=== PATIENT | female | born 1950 | race Hispanic/Latino ===

== ENCOUNTER 2023-10-11 13:47 | Emergency (ER) | payer OTHER ==
[~2023-10-11] VITALS: Ht 162.6 cm; Wt 67.6 kg
[~2023-10-11 13:47] MED LIST: ASPIRIN81 MG PO; CALCIUM PO; CRESTOR10 MG PO; FISH OIL OMEGA1 EACH PO; LISINOPRIL2.5 MG PO; MAGNESIUM PO; METFORMIN HCL500 MG PO; MULTIVITAMIN1 EACH PO; NITROFURANTOIN25 MG PO; OMEPRAZOLE40 MG PO
[2023-10-11 14:51] VITALS: TEMP 97.6
[2023-10-11 15:15] LABS: BASOPHILS % 0.3 % (0.0-1.0); EOSINOPHILS # (AUTO) 0.1 (0.0-0.4); EOSINOPHILS % 0.8 % (0.0-6.0); HEMATOCRIT 41.9 % (34.2-44.1); HEMOGLOBIN 13.3 g/dL (12.0-16.0); LYMPHOCYTES # (AUTO) 1.7 (1.0-3.2); LYMPHOCYTES % 28.2 % (18.0-39.1); MEAN CORPUSCULAR HEMOGLOBIN 28.3 pg (28-32); MEAN CORPUSCULAR HGB CONC 31.7 g/dL (31-35); MEAN CORPUSCULAR VOLUME 89.1 fL (81-99); MONOCYTES # (AUTO) 0.5 (0.2-0.8); MONOCYTES % 8.2 % (4.4-11.3); NEUTROPHILS # (AUTO) 3.7 (2.1-6.9); NEUTROPHILS % 62.2 % (38.7-80.0); PLATELET COUNT 203 x10e3/uL (140-360); WHITE BLOOD COUNT 5.99 x10e3/uL (4.8-10.8)
[2023-10-11 15:19] LABS: INR 0.89; PROTHROMBIN TIME 12.7 seconds (11.9-14.5)
[2023-10-11 15:20] LABS: PARTIAL THROMBOPLASTIN TIME 37.7 seconds (23.8-35.5)
[2023-10-11 15:31] LABS: ALANINE AMINOTRANSFERASE 25 IU/L (0-55); ALBUMIN/GLOBULIN RATIO 1.1 (0.8-2.0); ALKALINE PHOSPHATASE 59 IU/L (40-150); ANION GAP 16.7 mmol/L (8-16); BILIRUBIN,TOTAL 1.8 mg/dL (0.2-1.2); BLOOD UREA NITROGEN 17 mg/dL (7-26); BUN/CREATININE RATIO 22 (6-25); CALCIUM 9.6 mg/dL (8.4-10.2); CARBON DIOXIDE 24 mmol/L (22-29); CHLORIDE 104 mmol/L (98-107); CREATINE KINASE 37 IU/L (29-168); CREATININE, SERUM 0.79 mg/dL (0.57-1.11); EST GLOMERULAR FILTRATION RATE 79 ML/MIN (>=60); GLUCOSE 117 mg/dL (74-118); MAGNESIUM 1.4 MG/DL (1.3-2.1); POTASSIUM 3.7 mmol/L (3.5-5.1); SODIUM 141 mmol/L (136-145); TOTAL PROTEIN 7.6 g/dL (6.5-8.1)
[2023-10-11 15:37] LABS: TROPONIN I < 0.001 ng/mL (0-0.300)
[2023-10-11] MEDS ORDERED: IOPAMIDOL 370 MG/ML 100 ML INFUS..BTL INJ ONE (15:40)
[2023-10-11] MEDS ORDERED: SODIUM CHLORIDE 0.9% 100 ML ONE (15:40)
[2023-10-11 17:12] LABS: BILIRUBIN,URINE NEGATIVE (NEGATIVE); CLARITY,URINE SL CLOUDY (CLEAR); COLOR,URINE YELLOW (YELLOW); GLUCOSE, URINE NEGATIVE (NEGATIVE); KETONES,URINE NEGATIVE (NEGATIVE); LEUKOCYTE ESTERASE ,URINE TRACE (NEGATIVE); NITRITE,URINE NEGATIVE (NEGATIVE); PH,URINE 5 (5 - 7); PROTEIN,URINE DIPSTICK NEGATIVE (NEGATIVE); URINE UROBILINOGEN 0.2 mg/dL (0.2 - 1)
[2023-10-11] MEDS: SODIUM CHLORIDE 0.9% 1000ML 1,000 ML IV STA (17:17)
[2023-10-11 17:19] LABS: BACTERIA,URINE MODERATE /HPF; RBC,URINE 0-5 /HPF (0-5); WBC,URINE (MAN) 0-5 /HPF (0-5)
[2023-10-11] MEDS: ASPIRIN 325 MG TAB PO STA (17:30)
[2023-10-11 17:31] VITALS: PULSE 68; RESP 16
[2023-10-11 18:46] VITALS: BP 114/65; PULSE 65; RESP 16; O2SAT 99
== END 2023-10-11 18:42 | disposition home or self-care (01) ==
LOC: ER 14:58
DX: R53.83 Other fatigue (principal); G45.9 Transient cerebral ischemic attack, unspecified; I10 Essential (primary) hypertension; E11.9 Type 2 diabetes mellitus without complications; I25.10 Atherosclerotic heart disease of native coronary artery without angina pectoris; E78.5 Hyperlipidemia, unspecified; K76.9 Liver disease, unspecified
CPT/HCPCS: 36415; 70496; 70498; 71045; 80053; 81001; 82550; 83735; 84484; 85025; 85610; 85730; 87086; 93005; 99284; J7030; J7050; Q9967

== ENCOUNTER 2024-12-28 22:44 | Emergency (ER) | payer OTHER ==
[~2024-12-28] VITALS: Ht 162.6 cm; Wt 64.9 kg
[2024-12-28 22:55] VITALS: PULSE 83; RESP 18; TEMP 98.1
[2024-12-28] MEDS ORDERED: SODIUM CHLORIDE FLUSH 10 ML SYR IV PRN (23:00)
[2024-12-28 23:10] LABS: BASOPHILS % 0.3 % (0.0-1.0); EOSINOPHILS % 0.8 % (0.0-6.0); LYMPHOCYTES % 29.3 % (18.0-39.1); MONOCYTES % 10.3 % (4.4-11.3); NEUTROPHILS % 59.1 % (38.7-80.0); RED CELL DISTRIBUTION WIDTH 14.6 % (11.7-14.4)
[2024-12-28 23:32] LABS: EST GLOMERULAR FILTRATION RATE 92.0 ML/MIN (>=60)
[2024-12-28] MEDS: ONDANSETRON HCL INJ 2MG/ML 2ML 2 MG/ML VIAL IV STA (23:49)
[2024-12-29 01:57] VITALS: BP 118/63; PULSE 69; RESP 13; TEMP 97.8; O2SAT 100
== END 2024-12-29 01:59 | disposition home or self-care (01) ==
LOC: ER 23:28
DX: R10.13 Epigastric pain (principal); K29.70 Gastritis, unspecified, without bleeding; K21.9 Gastro-esophageal reflux disease without esophagitis; I12.9 Hypertensive chronic kidney disease with stage 1 through stage 4 chronic kidney disease, or unspecified chronic kidney disease; E11.22 Type 2 diabetes mellitus with diabetic chronic kidney disease; E11.65 Type 2 diabetes mellitus with hyperglycemia; N18.9 Chronic kidney disease, unspecified; E78.5 Hyperlipidemia, unspecified; I25.10 Atherosclerotic heart disease of native coronary artery without angina pectoris; K76.9 Liver disease, unspecified; R94.31 Abnormal electrocardiogram [ECG] [EKG]
CPT/HCPCS: 36415; 74022; 80053; 83690; 84484; 85025; 93005; 99284; J2405; J2470